=== PATIENT | female | born 1990 | race Hispanic/Latino ===

== ENCOUNTER 2021-12-24 06:30 | Emergency (ER) | payer OTHER | END 2021-12-24 07:38 | disposition home or self-care (01) | LOC: ERS 06:30 | DX: U07.1 COVID-19 (principal) | CPT/HCPCS: 99281; U0003; U0005 ==

== ENCOUNTER 2022-11-25 12:52 | Emergency (ER) | payer SELFPAY ==
[2022-11-25] MEDS ORDERED: Ketorolac Tromethamine 30 MG/ML VIAL ONE (13:37)
== END 2022-11-25 15:20 | disposition home or self-care (01) ==
LOC: ERS 12:52
DX: S32.2XXA Fracture of coccyx, initial encounter for closed fracture (principal); W19.XXXA Unspecified fall, initial encounter
CPT/HCPCS: 72220; 96372; J1885

== ENCOUNTER 2024-05-08 08:42 | Emergency (ER) | payer OTHER, SELFPAY ==
[2024-05-08] MEDS ORDERED: Dexamethasone 0.1% OPTH SOLN R EAR SCH (09:15)
[2024-05-08] MEDS ORDERED: Ciprofloxacin 0.3% Ophth Soln 2.5 ml Bottle R EAR SCH (09:15)
[2024-05-08] MEDS ORDERED: Ketorolac Tromethamine 30 MG (1 mL) VIAL ONE (09:16)
== END 2024-05-08 10:04 | disposition home or self-care (01) ==
LOC: ERS 08:42
DX: H60.501 Unspecified acute noninfective otitis externa, right ear (principal)
CPT/HCPCS: 96372; 99282; J1885